=== PATIENT | female | born 1965 | race Caucasian/White ===

== ENCOUNTER 2017-12-01 08:25 | Emergency (ER) | payer SELFPAY ==
[2017-12-01 09:04] VITALS: BP 143/81
--- NOTE | 2017-12-01 09:53 | UC ---
Throat Pain/Nasal [place] HPI - HPI Summary HPI Summary: 52 year old smoker with cough and sinus pressure for over 2 weeks . Cough for 2 weeks, ears are plugged and draining to throat; sore throat off on. she took 4 days of bactrim at home and it helped her to turn the corner but her is sick and here too and she made her come here. not using nasal meds. is still smoking. no wheeze no fever. [ End ] - History of Current Complaint Chief Complaint: UCRespiratory Stated Complaint: COUGH Time Seen by Provider: 12/01/17 09:15 Hx Obtained From: Patient Hx Last Menstrual Period: 6 yrs ?: No Onset/Duration: Gradual Onset Severity: Moderate Pain Intensity: 0 Cough: Productive Associated Signs & Symptoms: Positive: Sinus Discomfort, Nasal Discharge - Allergies/Home Medications Allergies/Adverse Reactions: Allergies Allergy/AdvReac Type Severity Reaction Status Date / Time BP med Allergy Swelling Uncoded 12/01/17 08:54 Of Face,Lips,& Throat Home Medications: Home Medications Escitalopram Oxalate [Lexapro 10 mg] 10 mg PO DAILY 12/01/17 [History Confirmed 12/01/17] Pseudoephedrine TAB* [Sudafed TAB*] 60 mg PO Q4H PRN 12/01/17 [History Confirmed 12/01/17] levETIRAcetam TAB* [Keppra TAB*] 500 mg PO BID 12/01/17 [History Confirmed 12/01] PMH/Surg Hx/FS Hx/Imm Hx Previously Healthy: Yes - Surgical History Surgical History: Yes Surgery Procedure, Year, and Place: uterine ablation, tonsilectomy - Family History Known Family History: Positive: None - Social History Lives: With Family Alcohol Use: None Substance Use Type: None Smoking Status (MU): Heavy Every Day Tobacco Smoker Type: Cigarettes Amount Used/How Often: 2 ppd Length of Time of Smoking/Using Tobacco: 27 yrs Have You Smoked in the Last Year: Yes Cessation Counseling: Patient Advised to Stop Review of Systems ENT: Ear Ache, Nasal Discharge, Sinus Congestion, Sinus Pain/Tenderness Respiratory: Cough Is Patient Immunocompromised?: No All Other Systems Reviewed And Are Negative: Yes Physical Exam Triage Information Reviewed: Yes Appearance: Well-Appearing, No Pain Distress, Well-Nourished Vital Signs: Initial Vital Signs Temp 98.3 F 12/01/17 08:58 Pulse 78 03/29/18 08:58 Resp 24 12/01/17 08:58 BP 143/81 12/01/17 08:58 Pulse Ox 99 12/01/17 08:58 Vital Signs Reviewed: Yes Eye Exam: Normal ENT Exam: Normal ENT: Positive: TM dull - right, Sinus tenderness Dental Exam: Normal Neck exam: Normal Neck: Positive: 1 Respiratory Exam: Normal Cardiovascular Exam: Normal Musculoskeletal Exam: Normal Neurological Exam: Normal Psychological Exam: Normal Skin Exam: Normal Throat Pain/Nasal Course/Dx - Course Course Of Treatment: try conservative treatment for a few days and if sx worsen then may start antibioticsl. she is aware and agreeable - Differential Dx/Diagnosis Differential Diagnosis/HQI/PQRI: Pharyngitis, Sinusitis, URI Provider Diagnoses: Sinusitis Discharge - Sign-Out/Discharge Documenting (check all that apply): Discharge - Discharge Plan Condition: Good Disposition: HOME Prescriptions: Amoxicillin/Clavulanate TAB* [Augmentin TAB 875*] 875 mg PO BID 10 Days #20 tab Benzonatate CAP* [Tessalon 100 MG CAP*] 100 mg PO TID #20 cap Patient Education Materials: Sinusitis (ED) Referrals: Antonio Soto DO [Primary Care Provider] - 4 Days Additional Instructions: Since your symptoms are improved you are advised to use flonase, antihistamines like you have been using and Netti pot. If your symptoms worsen then at that time you may start the antibiotics. - Billing Disposition and Condition Condition: GOOD Disposition: HOME
== END 2017-12-01 09:55 | disposition home or self-care (01) ==
LOC: UCCORT 08:25
DX: J32.9 Chronic sinusitis, unspecified (principal); F17.210 Nicotine dependence, cigarettes, uncomplicated; Z88.3 Allergy status to other anti-infective agents
CPT/HCPCS: 99212; G0463